=== PATIENT | male | born 1955 | race Hispanic/Latino ===

== ENCOUNTER 2020-12-12 13:48 | Inpatient (IN) | payer SELFPAY ==
[~2020-12-12] VITALS: Ht 170.2 cm; Wt 65.8 kg
[2020-12-12 13:51] VITALS: BP 118/49
[2020-12-12 14:46] LABS: HEMATOCRIT 22.6 % (42-54); MEAN CORPUSCULAR HEMOGLOBIN 20.5 pg (27.0-33.0); MEAN CORPUSCULAR HGB CONC 30.1 g/dL (32.0-36.0); MEAN CORPUSCULAR VOLUME 68.1 fL (79-99); PLATELET COUNT (AUTO) 205 K/uL (130-400); RED BLOOD CELL COUNT(AUTO) 3.32 MIL/uL (4.50-6.20); WHITE BLOOD COUNT (AUTO) 9.6 K/uL (4.8-10.8)
[2020-12-12 14:56] LABS: INR 1.19 (0.85-1.15); PROTHROMBIN TIME 12.8 SEC (9.6-11.6)
[2020-12-12 14:58] LABS: PARTIAL THROMBOPLASTIN TIME 21.3 SEC (26.3-35.5)
[2020-12-12 15:00] LABS: ALBUMIN 3.2 g/dL (3.5-5.0); BILIRUBIN,TOTAL 0.4 mg/dL (0.2-1.0); CREATININE 0.8 mg/dL (0.5-1.5); POTASSIUM 4.8 mmol/L (3.5-5.1); TOTAL PROTEIN, SERUM 6.4 g/dL (6.0-8.3)
[2020-12-12 15:30] VITALS: BP 88/48
[2020-12-12] MEDS ORDERED: FAMOTIDINE 20MG VIAL IV ONE ×2 (15:30→17:16)
[2020-12-12] MEDS ORDERED: PANTOPRAZOLE 40 MG/VIAL IVP SCH (15:30)
[2020-12-12 15:49] LABS: LYMPHOCYTES % (MANUAL) 5 % (22-44); SEGMENTED NEUTROPHILS % 95 % (40-70)
[2020-12-12 15:50] LABS: MAN.DIFF COMMENT-IMPRESSION MANUAL DIFFERENTIAL; PLATELET MORPHOLOGY COMMENT ADEQUATE
[2020-12-12 16:47] VITALS: BP 113/58
[2020-12-12] MEDS ORDERED: PANTOPRAZOLE 40 MG/VIAL ONE (17:16)
[2020-12-12] MEDS ORDERED: PROCHLORPERAZINE EDISYLATE 10 MG/2 ML VIAL IV SCH (17:45)
[2020-12-12] MEDS ORDERED: ONDANSETRON 4MG INJ IVP ONE (17:45)
[2020-12-12 17:51] VITALS: BP 113/55
[2020-12-12] MEDS ORDERED: NITROGLYCERIN 0.4 MG SL TAB SL PRN (18:45)
[2020-12-12] MEDS ORDERED: INSULIN HUMULIN R 100 UNIT/ML 3ML IV SCH (18:45)
[2020-12-12] MEDS ORDERED: ONDANSETRON 4MG INJ IV PRN (18:45)
[2020-12-12] MEDS ORDERED: INSULIN REGULAR, HUMAN 3ML 100 UNIT in 0.9%NACL 100ML 99 ML IV SCH ×2 (18:45)
[2020-12-12] MEDS ORDERED: ACETAMINOPHEN 325 MG TAB PO PRN ×2 (18:45)
[2020-12-12] MEDS ORDERED: DEXTROSE 5 %-0.45 % NACL 1,000 ML IV PRN (18:45)
[2020-12-12] MEDS ORDERED: NACL 0.9% 1000ML 1,000 ML IV SCH ×2 (18:45)
[2020-12-12] MEDS: NACL 0.9% 1000ML 1,000 ML IV SCH (18:45)
[2020-12-12 19:03] LABS: HEMOGLOBIN A1C 12.2 % (4.0-6.0)
[2020-12-12 19:23] LABS: ABG BASE EXCESS -10.3 mmol/L (-2.0-3.0); ABG HCO3 13.8 mmol/L (21.0-28.0); ABG OXYGEN SATURATION 97.3 % (95.0-99.0); ABG PCO2 27 mmHg (35-48)
[2020-12-12 20:15] VITALS: BP 123/60
[2020-12-12 20:16] LABS: TROPONIN I 0.61 ng/mL (0.00-0.06)
[2020-12-12] MEDS: PANTOPRAZOLE 40MG INJ 80 MG in 0.9%NACL 100ML 100 ML IVP SCH ×2 (20:52→22:33)
[2020-12-12 21:04] LABS: HEMATOCRIT 22.8 % (42-54)
[2020-12-12 21:25] LABS: CREATININE 0.8 mg/dL (0.5-1.5); POTASSIUM 4.7 mmol/L (3.5-5.1)
[2020-12-12 23:07] VITALS: BP 113/56
[2020-12-13] VITALS (20 sets, daily range): BP systolic 91–140; BP diastolic 41–69
[2020-12-13] MEDS: NACL 0.9% 1000ML 1,000 ML IV SCH ×3 (00:46→08:16)
[2020-12-13 01:03] LABS: ABG BASE EXCESS -5.2 mmol/L (-2.0-3.0); ABG HCO3 17.9 mmol/L (21.0-28.0); ABG PCO2 29 mmHg (35-48)
[2020-12-13 01:12] LABS: CREATININE 0.7 mg/dL (0.5-1.5); MAGNESIUM 1.9 mg/dL (1.80-2.40); POTASSIUM 4.1 mmol/L (3.5-5.1)
[2020-12-13 04:10] LABS: ABG BASE EXCESS -3.8 mmol/L (-2.0-3.0); ABG HCO3 19.1 mmol/L (21.0-28.0); ABG OXYGEN SATURATION 98.3 % (95.0-99.0); ABG PCO2 30 mmHg (35-48)
[2020-12-13 04:30] LABS: BASOPHILS % (AUTO) 0.1 % (0.0-5.0); LYMPHOCYTES % (AUTO) 17.2 % (21.0-51.0); MEAN CORPUSCULAR HEMOGLOBIN 20.5 pg (27.0-33.0); MEAN CORPUSCULAR HGB CONC 30.3 g/dL (32.0-36.0); MEAN CORPUSCULAR VOLUME 67.8 fL (79-99); NEUTROPHILS % (AUTO) 73.9 % (40.0-77.0); PLATELET COUNT (AUTO) 202 K/uL (130-400); RED BLOOD CELL COUNT(AUTO) 2.73 MIL/uL (4.50-6.20); RED CELL DISTRIBUTION WIDTH 20.6 % (11.0-15.5); WHITE BLOOD COUNT (AUTO) 7.2 K/uL (4.8-10.8)
[2020-12-13 04:34] LABS: HEMATOCRIT 18.5 % (42-54)
[2020-12-13 04:46] LABS: ALBUMIN 2.8 g/dL (3.5-5.0); BILIRUBIN,TOTAL 0.2 mg/dL (0.2-1.0); CREATININE 0.6 mg/dL (0.5-1.5); MAGNESIUM 1.8 mg/dL (1.80-2.40); POTASSIUM 3.8 mmol/L (3.5-5.1); TOTAL PROTEIN, SERUM 5.6 g/dL (6.0-8.3)
[2020-12-13] MEDS ORDERED: PANTOPRAZOLE 40 MG/VIAL ONE (06:05)
[2020-12-13] MEDS ORDERED: 0.9%NACL 100ML 100 ML ONE (06:06)
[2020-12-13 08:39] LABS: ABG BASE EXCESS -5.3 mmol/L (-2.0-3.0); ABG OXYGEN SATURATION 97.5 % (95.0-99.0); ABG PCO2 30 mmHg (35-48)
[2020-12-13] MEDS ORDERED: COMPOUND IV MISC 1 EACH IVSOLN MISC PRN (08:45)
[2020-12-13 09:02] LABS: CARBON DIOXIDE 13 mmol/L (21-32); CHLORIDE 118 mmol/L (101-111); CREATININE 0.3 mg/dL (0.5-1.5); GLOMERULAR FILTR. RATE CALC 321 mL/min (>60); GLUCOSE,RANDOM 156 mg/dL (70-105); UREA NITROGEN, BLOOD 18 mg/dL (7-18)
[2020-12-13] MEDS: CALCIUM GLUC 1GM VIAL 1 GM in 0.9%NACL 100ML 100 ML IV SCH ×2 (09:05→09:36)
[2020-12-13 09:06] LABS: MAGNESIUM 1.3 mg/dL (1.80-2.40); PHOSPHORUS 1.7 mg/dL (2.5-4.9)
[2020-12-13] MEDS: IRON SUCROSE COMPLEX 100 MG in 0.9% NACL 50ML 50 ML IV SCH ×2 (09:07→17:03)
[2020-12-13 09:30] LABS: SODIUM SERUM 145 mmol/L (136-145)
[2020-12-13] MEDS ORDERED: EPOETIN ALFA-EPBX (NON-ESRD) 10,000 UNIT/ML VIAL SQ SCH (09:30)
[2020-12-13] MEDS ORDERED: OCTREOTIDE ACETATE 500 MCG in 0.9%NACL 100ML 97.5 ML IV SCH ×2 (10:15→11:30)
[2020-12-13 10:17] LABS: HEMATOCRIT 15.3 % (42-54)
[2020-12-13 10:19] LABS: POTASSIUM 2.3 mmol/L (3.5-5.1)
[2020-12-13] MEDS: POTASSIUM CHLORIDE 10MEQ/100ML 100 ML IV PRN ×4 (10:22→17:30)
[2020-12-13] MEDS ORDERED: MIDAZOLAM HCL 1 MG/ML 2ML VIAL ONE (12:34)
[2020-12-13] MEDS ORDERED: FENTANYL CITRATE PF 50 MCG/1 ML 2ML VIAL ONE (12:35)
[2020-12-13] MEDS: MAGNESIUM 2GM PREMIX 50ML 50 ML IV PRN (14:11)
[2020-12-13] MEDS: SUCRALFATE 1 GM TABLET PO SCH ×3 (15:15→20:56)
[2020-12-13] MEDS ORDERED: POTASSIUM CHLORIDE 10% ELIXIR 20 MEQ/15 ML UDCUP PO SCH (15:15)
[2020-12-13] MEDS: LIDOCAINE HCL-MPF 1% 2ML VIAL IV PRN (15:25)
[2020-12-13] MEDS: FOLIC ACID 1 MG TABLET PO SCH (15:32)
[2020-12-13] MEDS: MULTIVITAMIN TABLET PO SCH (15:32)
[2020-12-13] MEDS ORDERED: PANTOPRAZOLE 40 MG TAB DR PO SCH (16:30)
[2020-12-13] MEDS: PANTOPRAZOLE 40MG INJ 80 MG in 0.9%NACL 100ML 100 ML IVP SCH (16:31)
[2020-12-13] MEDS ORDERED: IRON SUCROSE COMPLEX 100 MG in 0.9% NACL 50ML 50 ML IV ONE ×2 (17:00→18:00)
[2020-12-13] MEDS ORDERED: EPOETIN ALFA-EPBX (ESRD) 10,000 UNIT/ML VIAL SQ ONE (19:15)
[2020-12-13 20:29] LABS: HEMATOCRIT 17.1 % (42-54)
[2020-12-13 21:13] LABS: MAGNESIUM 2.2 mg/dL (1.80-2.40); PHOSPHORUS 2.1 mg/dL (2.5-4.9)
[2020-12-13] MEDS ORDERED: GLUCAGON 1MG KIT 1 MG ML IM PRN (21:30)
[2020-12-13] MEDS ORDERED: DEXTROSE 50%-WATER 50 ML DISP.SYRIN IV PRN (21:30)
[2020-12-13] MEDS: INSULIN HUMULIN R 100 UNIT/ML 3ML SQ SCH (21:50)
[2020-12-14] VITALS (25 sets, daily range): BP systolic 95–129; BP diastolic 44–67
[2020-12-14] MEDS: PANTOPRAZOLE 40MG INJ 80 MG in 0.9%NACL 100ML 100 ML IVP SCH (00:54)
[2020-12-14 03:42] LABS: BASOPHILS % (AUTO) 0.3 % (0.0-5.0); EOSINOPHILS % (AUTO) 0.3 % (0.0-8.0); LYMPHOCYTES % (AUTO) 13.6 % (21.0-51.0); MEAN CORPUSCULAR HEMOGLOBIN 20.7 pg (27.0-33.0); MEAN CORPUSCULAR HGB CONC 30.9 g/dL (32.0-36.0); MEAN CORPUSCULAR VOLUME 67.2 fL (79-99); MONOCYTES % (AUTO) 8.4 % (3.0-13.0); NEUTROPHILS % (AUTO) 75.5 % (40.0-77.0); NUCLEATED RED BLOOD CELLS 0.5 % (0.0-0.19); PLATELET COUNT (AUTO) 181 K/uL (130-400); RED BLOOD CELL COUNT(AUTO) 2.41 MIL/uL (4.50-6.20); RED CELL DISTRIBUTION WIDTH 21.3 % (11.0-15.5); WHITE BLOOD COUNT (AUTO) 6.3 K/uL (4.8-10.8)
[2020-12-14 03:44] LABS: HEMATOCRIT 16.2 % (42-54)
[2020-12-14 04:06] LABS: ALBUMIN 2.8 g/dL (3.5-5.0); BILIRUBIN,TOTAL 0.2 mg/dL (0.2-1.0); CREATININE 0.5 mg/dL (0.5-1.5); POTASSIUM 3.5 mmol/L (3.5-5.1); TOTAL PROTEIN, SERUM 5.7 g/dL (6.0-8.3)
[2020-12-14] MEDS: INSULIN HUMULIN R 100 UNIT/ML 3ML SQ SCH ×4 (06:11→20:18)
[2020-12-14] MEDS: SUCRALFATE 1 GM TABLET PO SCH ×4 (06:29→20:15)
[2020-12-14 06:43] LABS: PHOSPHORUS 2.1 mg/dL (2.5-4.9)
[2020-12-14] MEDS: POTASSIUM PHOS 15 mMOL+NS250ML 250 ML IV PRN (07:04)
[2020-12-14] MEDS: MULTIVITAMIN TABLET PO SCH (08:01)
[2020-12-14] MEDS: FOLIC ACID 1 MG TABLET PO SCH (08:02)
[2020-12-14] MEDS: CYANOCOBALAMIN (VITAMIN B-12) 100 MCG TABLET PO SCH (08:02)
[2020-12-14] MEDS: POTASSIUM CHLORIDE 10MEQ/100ML 100 ML IV PRN (08:16)
[2020-12-14] MEDS: LIDOCAINE HCL-MPF 1% 2ML VIAL IV PRN (08:17)
[2020-12-14] MEDS ORDERED: PHARMACY COMMUNICATION MISC SCH (08:45)
[2020-12-14] MEDS ORDERED: IRON SUCROSE COMPLEX IV SCH (09:00)
[2020-12-14] MEDS ORDERED: [UNRECOGNIZED DRUG - OTHER] IV SCH (09:00)
[2020-12-14] MEDS: PANTOPRAZOLE 40 MG/VIAL IVP SCH ×2 (12:01→20:16)
[2020-12-14] MEDS: INSULIN GLARGINE 100 UNITS/ML 10 ML VIAL SQ SCH ×2 (13:15→20:19)
[2020-12-14] MEDS ORDERED: INSULIN HUMULIN R 100 UNIT/ML 3ML SQ SCH (21:30)
[2020-12-15] VITALS (9 sets, daily range): BP systolic 90–134; BP diastolic 50–76
[2020-12-15 03:35] LABS: BASOPHILS % (AUTO) 0.2 % (0.0-5.0); EOSINOPHILS % (AUTO) 0.3 % (0.0-8.0); LYMPHOCYTES % (AUTO) 15.3 % (21.0-51.0); MEAN CORPUSCULAR HEMOGLOBIN 21.6 pg (27.0-33.0); MEAN CORPUSCULAR HGB CONC 30.2 g/dL (32.0-36.0); MEAN CORPUSCULAR VOLUME 71.4 fL (79-99); NEUTROPHILS % (AUTO) 71.5 % (40.0-77.0); NUCLEATED RED BLOOD CELLS 0.8 % (0.0-0.19); PLATELET COUNT (AUTO) 174 K/uL (130-400); RED BLOOD CELL COUNT(AUTO) 2.41 MIL/uL (4.50-6.20); RED CELL DISTRIBUTION WIDTH 22.6 % (11.0-15.5)
[2020-12-15 03:39] LABS: HEMATOCRIT 17.2 % (42-54)
[2020-12-15 03:50] LABS: % IRON SATURATION 24.5 % (30-44)
[2020-12-15 03:55] LABS: ALBUMIN 2.8 g/dL (3.5-5.0); BILIRUBIN,TOTAL 0.3 mg/dL (0.2-1.0); CREATININE 0.4 mg/dL (0.5-1.5); MAGNESIUM 1.9 mg/dL (1.80-2.40); PHOSPHORUS 2.4 mg/dL (2.5-4.9); TOTAL PROTEIN, SERUM 5.8 g/dL (6.0-8.3)
[2020-12-15] MEDS: INSULIN HUMULIN R 100 UNIT/ML 3ML SQ SCH ×4 (07:30→21:00)
[2020-12-15] MEDS ORDERED: POTASSIUM CHLORIDE 10% ELIXIR 20 MEQ/15 ML UDCUP PO SCH (08:15)
[2020-12-15] MEDS: MULTIVITAMIN TABLET PO SCH (08:39)
[2020-12-15] MEDS: SUCRALFATE 1 GM TABLET PO SCH ×4 (08:39→20:04)
[2020-12-15] MEDS: CYANOCOBALAMIN (VITAMIN B-12) 100 MCG TABLET PO SCH (08:39)
[2020-12-15] MEDS: FOLIC ACID 1 MG TABLET PO SCH (08:39)
[2020-12-15] MEDS: IRON SUCROSE COMPLEX 100 MG in 0.9% NACL 50ML 50 ML IV SCH (08:40)
[2020-12-15] MEDS: PANTOPRAZOLE 40 MG/VIAL IVP SCH ×2 (08:40→20:04)
[2020-12-15] MEDS: MAGNESIUM 2GM PREMIX 50ML 50 ML IV PRN (08:42)
[2020-12-15] MEDS: POTASSIUM CHLORIDE 10MEQ/100ML 100 ML IV PRN (08:43)
[2020-12-15] MEDS ORDERED: 0.9%NACL 250ML 250 ML ONE (09:02)
[2020-12-15] MEDS: POTASSIUM PHOS 15 mMOL+NS250ML 250 ML IV PRN (10:15)
[2020-12-15] MEDS: CYANOCOBALAMIN (VITAMIN B-12) 1,000 MCG TABLET PO SCH (11:00)
[2020-12-15] MEDS ORDERED: CYANOCOBALAMIN (VITAMIN B-12) 1,000 MCG TABLET PO SCH (13:15)
[2020-12-15] MEDS: INSULIN GLARGINE 100 UNITS/ML 10 ML VIAL SQ SCH (21:00)
[2020-12-16] VITALS (9 sets, daily range): BP systolic 96–132; BP diastolic 50–65
[2020-12-16] MEDS: SUCRALFATE 1 GM TABLET PO SCH ×4 (05:40→20:28)
[2020-12-16] MEDS: LIDOCAINE HCL-MPF 1% 2ML VIAL IV PRN (05:40)
[2020-12-16] MEDS: POTASSIUM CHLORIDE 10MEQ/100ML 100 ML IV PRN (05:41)
[2020-12-16] MEDS: INSULIN HUMULIN R 100 UNIT/ML 3ML SQ SCH ×8 (05:49→22:40)
[2020-12-16] MEDS: MULTIVITAMIN TABLET PO SCH (09:23)
[2020-12-16] MEDS: PANTOPRAZOLE 40 MG/VIAL IVP SCH ×2 (09:23→20:28)
[2020-12-16] MEDS: FOLIC ACID 1 MG TABLET PO SCH (09:23)
[2020-12-16] MEDS: CYANOCOBALAMIN (VITAMIN B-12) 1,000 MCG TABLET PO SCH (09:23)
[2020-12-16] MEDS: IRON SUCROSE COMPLEX 100 MG in 0.9% NACL 50ML 50 ML IV SCH (14:34)
[2020-12-16] MEDS: INSULIN GLARGINE 100 UNITS/ML 10 ML VIAL SQ SCH (22:41)
[2020-12-17 03:30] VITALS: BP 102/54
[2020-12-17] MEDS: INSULIN HUMULIN R 100 UNIT/ML 3ML SQ SCH ×7 (05:22→22:32)
[2020-12-17 07:52] VITALS: BP 118/45
[2020-12-17] MEDS: SUCRALFATE 1 GM TABLET PO SCH ×4 (08:59→22:26)
[2020-12-17] MEDS: PANTOPRAZOLE 40 MG/VIAL IVP SCH ×2 (08:59→22:26)
[2020-12-17] MEDS: FOLIC ACID 1 MG TABLET PO SCH (08:59)
[2020-12-17] MEDS: MULTIVITAMIN TABLET PO SCH (08:59)
[2020-12-17] MEDS: CYANOCOBALAMIN (VITAMIN B-12) 1,000 MCG TABLET PO SCH (09:00)
[2020-12-17] MEDS: IRON SUCROSE COMPLEX 100 MG in 0.9% NACL 50ML 50 ML IV SCH (10:23)
[2020-12-17 11:21] LABS: MEAN CORPUSCULAR HEMOGLOBIN 22.3 pg (27.0-33.0); MEAN CORPUSCULAR HGB CONC 29.2 g/dL (32.0-36.0); MEAN CORPUSCULAR VOLUME 76.5 fL (79-99); RED BLOOD CELL COUNT(AUTO) 2.51 MIL/uL (4.50-6.20); WHITE BLOOD COUNT (AUTO) 3.7 K/uL (4.8-10.8)
[2020-12-17 11:24] VITALS: BP 126/63
[2020-12-17 11:26] LABS: HEMATOCRIT 19.2 % (42-54)
[2020-12-17 11:28] LABS: CREATININE 0.4 mg/dL (0.5-1.5)
[2020-12-17] MEDS ORDERED: EPOETIN ALFA-EPBX (NON-ESRD) 10,000 UNIT/ML VIAL SQ SCH (12:00)
[2020-12-17 15:46] VITALS: BP 115/58
[2020-12-17 19:00] VITALS: BP 118/56
[2020-12-17] MEDS ORDERED: INSULIN GLARGINE 100 UNITS/ML 10 ML VIAL SQ SCH (21:00)
[2020-12-18] VITALS: BP 100/54
[2020-12-18 04:00] VITALS: BP 93/55
[2020-12-18] MEDS: SUCRALFATE 1 GM TABLET PO SCH ×3 (06:36→16:08)
[2020-12-18] MEDS: INSULIN HUMULIN R 100 UNIT/ML 3ML SQ SCH ×6 (07:30→16:42)
[2020-12-18 08:12] VITALS: BP 121/67
[2020-12-18] MEDS: MULTIVITAMIN TABLET PO SCH (08:12)
[2020-12-18] MEDS: PANTOPRAZOLE 40 MG/VIAL IVP SCH (08:12)
[2020-12-18] MEDS: FOLIC ACID 1 MG TABLET PO SCH (08:12)
[2020-12-18] MEDS: IRON SUCROSE COMPLEX 100 MG in 0.9% NACL 50ML 50 ML IV SCH (08:12)
[2020-12-18] MEDS: CYANOCOBALAMIN (VITAMIN B-12) 1,000 MCG TABLET PO SCH (08:13)
[2020-12-18 11:08] LABS: BASOPHILS % (AUTO) 0.2 % (0.0-5.0); EOSINOPHILS % (AUTO) 0.2 % (0.0-8.0); HEMATOCRIT 22.3 % (42-54); LYMPHOCYTES % (AUTO) 15.1 % (21.0-51.0); MEAN CORPUSCULAR HEMOGLOBIN 22.7 pg (27.0-33.0); MEAN CORPUSCULAR HGB CONC 28.7 g/dL (32.0-36.0); MEAN CORPUSCULAR VOLUME 79.1 fL (79-99); MONOCYTES % (AUTO) 5.6 % (3.0-13.0); NEUTROPHILS % (AUTO) 78.4 % (40.0-77.0); PLATELET COUNT (AUTO) 220 K/uL (130-400); RED BLOOD CELL COUNT(AUTO) 2.82 MIL/uL (4.50-6.20); RED CELL DISTRIBUTION WIDTH 28.3 % (11.0-15.5); WHITE BLOOD COUNT (AUTO) 4.3 K/uL (4.8-10.8)
[2020-12-18 11:24] LABS: CREATININE 0.6 mg/dL (0.5-1.5); POTASSIUM 3.9 mmol/L (3.5-5.1)
[2020-12-18 11:29] LABS: % IRON SATURATION 27.6 % (30-44)
[2020-12-18 11:39] VITALS: BP 127/64
[2020-12-18] MEDS ORDERED: EPOETIN ALFA-EPBX (NON-ESRD) 10,000 UNIT/ML VIAL SQ SCH (13:30)
[2020-12-18] MEDS ORDERED: CLARITHROMYCIN 500 MG TABLET PO SCH (13:30)
[2020-12-18] MEDS ORDERED: AMOXICILLIN 500 MG CAPSULE PO SCH (13:30)
[2020-12-18] MEDS ORDERED: BLOO-140 MC (14:37)
[2020-12-18] MEDS ORDERED: SYRI-1628 MC (14:37)
[2020-12-18] MEDS ORDERED: CYAN-52 PO (14:37)
[2020-12-18] MEDS ORDERED: AMOX500C2 PO (14:37)
[2020-12-18] MEDS ORDERED: CLAR250T39 PO (14:37)
[2020-12-18] MEDS ORDERED: LANC1COM7 MC (14:37)
[2020-12-18] MEDS ORDERED: PANT40TA PO (14:37)
[2020-12-18] MEDS ORDERED: HUM10VIA SQ (14:37)
[2020-12-18 16:30] VITALS: BP 119/55
[2020-12-18] MEDS ORDERED: PANTOPRAZOLE 40 MG TAB DR PO SCH (21:00)
== END 2020-12-18 18:00 | disposition home or self-care (01) | DRG 377 ==
LOC: EDH 13:48 → EDHIP 13:49 → 2DH 12-13 06:55 → 4AH 12-16 02:00 → 4CH 12-16 14:36
PROVIDERS: ADMIT Internal Medicine; ATTEND Internal Medicine
PROC: 0DJ08ZZ Inspection of Upper Intestinal Tract, Via Natural or Artificial Opening Endoscopic (ICD-10-PCS; principal; 2020-12-13)
DX: K26.4 Chronic or unspecified duodenal ulcer with hemorrhage (principal); I21.4 Non-ST elevation (NSTEMI) myocardial infarction; E11.10 Type 2 diabetes mellitus with ketoacidosis without coma; D62 Acute posthemorrhagic anemia; I49.3 Ventricular premature depolarization; E78.5 Hyperlipidemia, unspecified; E11.42 Type 2 diabetes mellitus with diabetic polyneuropathy; I10 Essential (primary) hypertension; E87.6 Hypokalemia; N19 Unspecified kidney failure; I25.10 Atherosclerotic heart disease of native coronary artery without angina pectoris; Z53.1 Procedure and treatment not carried out because of patient's decision for reasons of belief and group pressure; Z80.0 Family history of malignant neoplasm of digestive organs; Z83.2 Family history of diseases of the blood and blood-forming organs and certain disorders involving the immune mechanism
CPT/HCPCS: 36415; 36600; 43235; 71045; 76705; 80048; 80053; 80061; 82010; 82330; 82550; 82728; 82803; 82948; 83013; 83036; 83540; 83550; 83735; 83874; 83930; 84100; 84132; 84484; 85014; 85018; 85025; 85027; 85045; 85610; 85730; 93005; 93306; 93356; 99152; 99153; C9113; G0378; J0610; J1756; J1815; J2250; J2354; J3010; J3475; J3490; J7030; J7042; J7050